=== PATIENT | female | born 1995 | race Caucasian/White ===

== ENCOUNTER 2017-05-15 12:19 | Emergency (ER) | payer OTHER ==
[~2017-05-15] VITALS: Ht 157.5 cm; Wt 66.0 kg
[~2017-05-15 12:19] MED LIST: PREN-385 PO
[2017-05-15 12:24] VITALS: BP 132/81
--- NOTE | 2017-05-15 12:45 | NUR ---
PT REPORTS MID EPIGASTRIC PAIN/CRAMPING SENSATION SINCE LAST NIGHT, WITH CHILLS/FEVERS. ALSO REPORTS DIARRHEA. DENIES DYSURIA, HEMATURIA, OR VAG BLEEDING. ABD SOFT, MILD TENDER WITH PALPATION. =BS [id number]. SKIN W/D/I. RESP EVEN AND UNLABORED. DENIES ANY MED HX OR FAMILY HX, NO DM. WAITING FOR ER MD MUELLER. URINE NEG FOR PREGANCY.
[2017-05-15] MEDS ORDERED: ONDANSETRON 4 MG ODT SL PRN (13:25)
[2017-05-15] MEDS ORDERED: DICYCLOMINE HCL LIQUID 20 MG, ALUMINUM HYD/MAG/SIMETHICONE 30 ML, LIDOCAINE VISCOUS 2% ... PO ONE ×3 (13:25)
[2017-05-15] MEDS ORDERED: FAMOTIDINE 20 MG TAB PO ONE (13:25)
--- NOTE | 2017-05-15 13:29 | NUR ---
pt reports relief after medication, ER updated on pt status. Addendum: 05/15/17 at 1456 by [id number] note at 1410
[2017-05-15 15:01] LABS: BASOPHILS # (AUTO) 0.2 K/uL (0.00-0.22); BASOPHILS % (AUTO) 2.3 % (0.0-2.0); EOSINOPHILS % (AUTO) 0.4 % (0.0-4.0); HEMOGLOBIN 13.3 g/dL (12.0-16.0); LYMPHOCYTES # (AUTO) 1.5 K/uL (2.5-16.5); LYMPHOCYTES % (AUTO) 20.5 % (20.5-51.1); MEAN CORPUSCULAR HEMOGLOBIN 26 pg (27-31); MEAN CORPUSCULAR HGB CONC 33 g/dL (33-37); MEAN CORPUSCULAR VOLUME 78 fL (80-94); MONOCYTES # (AUTO) 0.5 K/uL (0.8-1.0); MONOCYTES % (AUTO) 6.6 % (1.7-9.3); NEUTROPHILS # (AUTO) 5.3 K/uL (1.8-7.7); NEUTROPHILS % (AUTO) 70.2 % (42.2-75.2); PLATELET COUNT (AUTO) 234 K/uL (140-450); RED BLOOD CELL COUNT(AUTO) 5.11 MIL/uL (4.20-5.40); RED CELL DISTRIBUTION WIDTH 15.8 % (11.6-13.7); WHITE BLOOD COUNT (AUTO) 7.5 K/uL (4.8-10.8)
[2017-05-15 15:13] LABS: BILIRUBIN,URINE NEGATIVE (NEGATIVE); BLOOD, URINE 1+ (NEGATIVE); COLOR,URINE YELLOW (YELLOW); LEUKOCYTE ESTERASE ,URINE NEGATIVE (NEGATIVE); NITRITE, URINE NEGATIVE (NEGATIVE); UGLUCOSE NEGATIVE (NEGATIVE)
--- NOTE | 2017-05-15 15:20 | NUR ---
NO ACUTE CHANGES IN CONDITION, DENIES ANY PAIN.
[2017-05-15 15:21] LABS: APPEARANCE,URINE SLIGHTLY HAZY (CLEAR)
[2017-05-15 15:23] LABS: ANION GAP 10.9 (8-16); CARBON DIOXIDE 26.9 mmol/L (21-32); CREATININE 0.7 mg/dL (0.6-1.3); POTASSIUM 3.8 mmol/L (3.5-5.1); TOTAL BILIRUBIN 0.6 mg/dL (0.0-1.0)
[2017-05-15 15:34] LABS: RBC,URINE 3-10 (FEW) /HPF (0-5)
[2017-05-15 15:35] LABS: WBC,URINE 0-5 (RARE) /HPF (0-5)
--- NOTE | 2017-05-15 15:46 | NUR ---
Patient discharged with v/s stable. Written and verbal after care instructions given and explained. Patient alert, oriented and verbalized understanding of instructions. Ambulatory with steady gait. All questions addressed prior to discharge. ID band removed. Patient advised to follow up with PMD. Rx of ZOFRAN AND PEPCID given. Patient educated on indication of medication including possible reaction and side effects. Opportunity to ask questions provided and answered.
[2017-05-15 16:06] VITALS: BP 112/73
== END 2017-05-15 15:46 | disposition home or self-care (01) ==
LOC: MED 12:19
DX: K29.70 Gastritis, unspecified, without bleeding (principal)
CPT/HCPCS: 36415; 80053; 81001; 81025; 83690; 84703; 85025; 99284; S0119

== ENCOUNTER 2019-07-09 04:56 | Emergency (ER) | payer OTHER ==
[~2019-07-09] VITALS: Ht 154.9 cm; Wt 71.2 kg
[2019-07-09 05:00] VITALS: BP 137/78
--- NOTE | 2019-07-09 05:08 | NUR ---
PT AMBULATED TO RESTROOM TO PROVIDE URINE SPECIMEN
--- NOTE | 2019-07-09 05:15 | NUR ---
24 Y/O FEMALE PRESENTS TO ED, C/O ABDOMINAL PAIN 03/16. PT STATES PAIN HAS BEEN INTERMITTENT FOR PAST 3 MONTHS AND WORSENED TODAY. PAIN IS ON LOWER ABDOMEN. BS ACTIVE X4 QUADRANTS. ABDOMEN IS SOFT AND NON TENDER. PT C/O NAUSEA AND VOMITING. STATES VOMITING EVERY DAY. PT DENIES ANY PAIN URINATING. NO SOB/DIFFICULTY BREATHING NOTED. PT VSS. ERMD AWARE. WILL CONTINUE TO MONITOR.
--- NOTE | 2019-07-09 05:27 | NUR ---
BLOOD DRAWN AND URINE SENT TO LAB AT THIS TIME
[2019-07-09 05:41] LABS: BASOPHILS % (AUTO) 0.3 % (0.0-2.0); EOSINOPHILS # (AUTO) 0.1 K/uL (0-0.4); EOSINOPHILS % (AUTO) 1.2 % (0.0-4.0); HEMATOCRIT 42.9 % (36-48); HEMOGLOBIN 13.8 g/dL (12.0-16.0); LYMPHOCYTES # (AUTO) 1.8 K/uL (2.5-16.5); MEAN CORPUSCULAR HEMOGLOBIN 27 pg (27-31); MEAN CORPUSCULAR HGB CONC 32 g/dL (33-37); MEAN CORPUSCULAR VOLUME 85.1 fL (80-94); MONOCYTES # (AUTO) 0.5 K/uL (0.8-1.0); MONOCYTES % (AUTO) 6.1 % (1.7-9.3); NEUTROPHILS # (AUTO) 6.2 K/uL (1.8-7.7); NEUTROPHILS % (AUTO) 71.4 % (42.2-75.2); PLATELET COUNT (AUTO) 268 K/uL (140-450); RED BLOOD CELL COUNT(AUTO) 5.04 MIL/uL (4.20-5.40); RED CELL DISTRIBUTION WIDTH 14.2 % (11.6-13.7); WHITE BLOOD COUNT (AUTO) 8.6 K/uL (4.8-10.8)
[2019-07-09 05:42] LABS: APPEARANCE,URINE SL CLOUDY (CLEAR); BILIRUBIN,URINE NEGATIVE (NEGATIVE); BLOOD, URINE TRACE-I (NEGATIVE); COLOR,URINE YELLOW (YELLOW); LEUKOCYTE ESTERASE ,URINE 2+ (NEGATIVE); NITRITE, URINE NEGATIVE (NEGATIVE); PH,URINE 6.5 (5.0-9.0); UGLUCOSE NEGATIVE (NEGATIVE)
[2019-07-09 06:02] LABS: ANION GAP 14.6 (8-16); CARBON DIOXIDE 23.3 mmol/L (21-32); CREATININE 0.7 mg/dL (0.6-1.3); POTASSIUM 3.9 mmol/L (3.5-5.1)
[2019-07-09] MEDS ORDERED: KETOROLAC 30 MG/ML VIAL IVP ONE (06:05)
[2019-07-09] MEDS ORDERED: ONDANSETRON 4 MG/2 ML VIAL IVP ONE (06:05)
[2019-07-09 06:08] LABS: ALBUMIN 3.8 g/dL (3.4-5.0); TOTAL BILIRUBIN 0.6 mg/dL (0.0-1.0)
[2019-07-09] MEDS ORDERED: CIPROFLOXACIN 250 MG TAB PO ONE (06:15)
[2019-07-09 06:18] LABS: RBC,URINE 0-5 /HPF (0-5)
--- NOTE | 2019-07-09 06:23 | NUR ---
PT TAKEN TO CT
--- NOTE | 2019-07-09 06:40 | NUR ---
PT RETURN FROM CT
[2019-07-09 07:16] VITALS: BP 129/69
--- NOTE | 2019-07-09 07:16 | NUR ---
PT DISCHARGED WITH PAPERWORK. EDUCATED PT REGARDING D/C DIAGNOSIS, INSTRUCTIONS AND MEDICATIONS. PT VERBALIZED UNDERSTANDING OF TEACHING. TOLD PT TO FOLLOW UP WITH PCP AND WHEN TO RETURN TO ED. PT VSS. NO N/V NOTED. ALL QUESTIONS ANSWERED.
== END 2019-07-09 07:16 | disposition home or self-care (01) ==
LOC: MED 04:56
DX: N83.201 Unspecified ovarian cyst, right side (principal); N20.0 Calculus of kidney; N39.0 Urinary tract infection, site not specified; R11.2 Nausea with vomiting, unspecified; Z79.899 Other long term (current) drug therapy
CPT/HCPCS: 36415; 74176; 80053; 81001; 83690; 84703; 85025; 87086; 96374; 96375; 99284; J1885; J2405

== ENCOUNTER 2019-09-21 01:19 | Emergency (ER) | payer OTHER ==
[~2019-09-21] VITALS: Ht 154.9 cm; Wt 73.9 kg
[2019-09-21 01:24] VITALS: BP 136/84
--- NOTE | 2019-09-21 01:28 | NUR ---
PT TAKEN TO BED 5
[2019-09-21] MEDS ORDERED: LORazepam 0.5 MG TAB PO ONE (02:10)
--- NOTE | 2019-09-21 02:10 | NUR ---
24 YEAR OLD FEMALE COMPLAINS OF ANXIETY AND SHAKING SINCE 8PM. PATIENT DENIES ANY OTHER SYMPTOMS AT THIS TIME. PATIENT AOX4, BREATHING EVEN AND UNLABORED, SKIN WARM AND DRY. BED IN LOWEST POSITION, LOCKED, BED RAIL UPX1. PMH - DENIES ALLERGIES - NKA
--- NOTE | 2019-09-21 03:00 | NUR ---
PATIENT ALERT AND AWAKE, BREATHING EVEN AND UNLABORED
[2019-09-21 04:09] VITALS: BP 133/78
--- NOTE | 2019-09-21 04:09 | NUR ---
Patient discharged with v/s stable. Written and verbal after care instructions about anxiety and panic attacks given and explained. Patient alert, oriented and verbalized understanding of instructions. Ambulatory with steady gait. All questions addressed prior to discharge. ID band removed. Patient advised to follow up with PMD. Rx of ativan given. Patient educated on indication of medication including possible reaction and side effects. Opportunity to ask questions provided and answered.
== END 2019-09-21 04:09 | disposition home or self-care (01) ==
LOC: MED 01:19
DX: F41.9 Anxiety disorder, unspecified (principal)
CPT/HCPCS: 93005; 99283

== ENCOUNTER 2021-01-28 19:09 | Emergency (ER) | payer OTHER ==
[~2021-01-28] VITALS: Ht 154.9 cm; Wt 67.1 kg
[2021-01-28 19:17] VITALS: BP 135/74
[2021-01-28] MEDS ORDERED: ACETAMINOPHEN EXTRA STRENGTH 500 MG TAB PO ONE (19:40)
[2021-01-28 20:24] LABS: APPEARANCE,URINE SL CLOUDY (CLEAR); BILIRUBIN,URINE NEGATIVE (NEGATIVE); BLOOD, URINE 3+ (NEGATIVE); COLOR,URINE YELLOW (YELLOW); LEUKOCYTE ESTERASE ,URINE 1+ (NEGATIVE); NITRITE, URINE NEGATIVE (NEGATIVE); PH,URINE 8.5 (5.0-9.0); UGLUCOSE NEGATIVE (NEGATIVE)
[2021-01-28] MEDS ORDERED: CEPH-588 PO (20:43)
[2021-01-28] MEDS ORDERED: AMOXICILLIN 500 MG CAP PO ONE (20:45)
[2021-01-28 20:55] VITALS: BP 135/74
== END 2021-01-28 20:55 | disposition home or self-care (01) ==
LOC: MED 19:09
DX: N39.0 Urinary tract infection, site not specified (principal); Z79.899 Other long term (current) drug therapy
CPT/HCPCS: 81001; 81025; 87086; 99283

== ENCOUNTER 2021-02-14 04:05 | Emergency (ER) | payer OTHER ==
[~2021-02-14] VITALS: Ht 154.9 cm; Wt 70.3 kg
[~2021-02-14 04:05] MED LIST changes: +CEPH-588 PO; -PREN-385 PO
[2021-02-14 04:10] VITALS: BP 114/66
--- NOTE | 2021-02-14 04:10 | NUR ---
to bed ambulatory
--- NOTE | 2021-02-14 04:11 | NUR ---
IN RR GIVING URINE SAMPLE.
--- NOTE | 2021-02-14 04:15 | NUR ---
PT AMBULATED BACK TO BED WITH STEADY GAIT.
--- NOTE | 2021-02-14 04:30 | NUR ---
25 YO F BIB SELF WITH C/C OF VAGINAL BLEEDING X1 WEEK. PT ALSO HAS 9/10 EPIGASTRIC CRAMPING PAIN X2 DAYS. PT WAS SEEN ABOUT 2 WEEKS AGO FOR BLADDER INFECTION. DENIES DISCHARGE, SMELL AND ITCHING. DENIES BURNING DURING URINATION. PT PLACED IN GOWN. BED LOCKED IN LOWEST POSITION, SIDE RAILS X1. LAST MENS: 2 WKS AGO DENIES HX ANS RX NKA
--- NOTE | 2021-02-14 05:38 | NUR ---
blood work collected and given to cristhian from lab.
[2021-02-14 05:44] LABS: BASOPHILS % (AUTO) 0.2 % (0.0-2.0); EOSINOPHILS # (AUTO) 0.1 K/uL (0-0.4); EOSINOPHILS % (AUTO) 0.4 % (0.0-4.0); HEMATOCRIT 40.1 % (36-48); HEMOGLOBIN 12.9 g/dL (12.0-16.0); LYMPHOCYTES # (AUTO) 1.2 K/uL (2.5-16.5); LYMPHOCYTES % (AUTO) 7.1 % (20.5-51.1); MEAN CORPUSCULAR HEMOGLOBIN 26 pg (27-31); MEAN CORPUSCULAR HGB CONC 32 g/dL (33-37); MEAN CORPUSCULAR VOLUME 79.8 fL (80-94); MONOCYTES # (AUTO) 0.7 K/uL (0.8-1.0); MONOCYTES % (AUTO) 4.3 % (1.7-9.3); NEUTROPHILS # (AUTO) 14.7 K/uL (1.8-7.7); PLATELET COUNT (AUTO) 301 K/uL (140-450); RED BLOOD CELL COUNT(AUTO) 5.02 MIL/uL (4.20-5.40); RED CELL DISTRIBUTION WIDTH 15.8 % (11.6-13.7); WHITE BLOOD COUNT (AUTO) 16.7 K/uL (4.8-10.8)
--- NOTE | 2021-02-14 05:44 | NUR ---
pt is sitting up in bed using phone. all needs met at this time. bed locked in lowest position, side rails x2.
[2021-02-14 06:02] LABS: ALBUMIN 3.6 g/dL (3.4-5.0); ANION GAP 14.4 (8-16); CARBON DIOXIDE 23.2 mmol/L (21-32); CREATININE 0.7 mg/dL (0.6-1.3); POTASSIUM 3.6 mmol/L (3.5-5.1); TOTAL BILIRUBIN 0.6 mg/dL (0.0-1.0)
--- NOTE | 2021-02-14 06:18 | NUR ---
Female Dredge Captain accompanied female patient for Pelvic Exam.
--- NOTE | 2021-02-14 06:58 | NUR ---
us at bedside.
[2021-02-14] MEDS ORDERED: metroNIDAZOLE 250 MG TAB PO ONE (07:05)
[2021-02-14] MEDS ORDERED: cefTRIAXone 500 MG in LIDOCAINE MPF 1% 1 ML IM ONE (07:05)
[2021-02-14] MEDS ORDERED: METR500T1 PO (07:07)
[2021-02-14] MEDS ORDERED: DOXY-565 PO (07:07)
--- NOTE | 2021-02-14 07:12 | NUR ---
report given to constantine ewing. transfer of care at this time.
[2021-02-14] MEDS ORDERED: LIDOCAINE MPF 1% 5 ML ONE (07:19)
[2021-02-14] MEDS ORDERED: cefTRIAXone 500 MG VIAL ONE (07:19)
[2021-02-14] MEDS ORDERED: DOXYCYCLINE 100 MG CAP PO SCH ×3 (07:40→09:00)
[2021-02-14] MEDS ORDERED: DOXYCYCLINE 100 MG CAP ONE (07:42)
--- NOTE | 2021-02-14 08:00 | NUR ---
Patient resting with eyes closed, placed on bedside monitor, awaiting results.
--- NOTE | 2021-02-14 09:22 | NUR ---
Per lab new urine sample needed, patient ambulated to restroom to provide urine sample.
--- NOTE | 2021-02-14 09:25 | NUR ---
Henok collected and walked to lab.
--- NOTE | 2021-02-14 09:29 | NUR ---
Patient discharged with v/s stable. Written and verbal after care instructions given about abdominal pain and explained. Patient alert, oriented and verbalized understanding of instructions. Ambulatory with steady gait. All questions addressed prior to discharge. ID band removed. Patient advised to follow up with PMD. Rx of Doxycycline monohydrate and flagyl given. Patient educated on indication of medication including possible reaction and side effects. Opportunity to ask questions provided and answered.
[2021-02-14 09:31] VITALS: BP 125/54
--- NOTE | 2021-02-16 13:03 | NUR ---
LATE ENTRY---Urine culture results received from lab. Lab called with positive Chlamydia results, waiting for lab to send a hard copy.
== END 2021-02-14 09:29 | disposition home or self-care (01) ==
LOC: MED 04:05
DX: N93.9 Abnormal uterine and vaginal bleeding, unspecified (principal); R11.2 Nausea with vomiting, unspecified; R19.7 Diarrhea, unspecified; Z79.899 Other long term (current) drug therapy
CPT/HCPCS: 36415; 76856; 80053; 81002; 81025; 84702; 85025; 86900; 86901; 87210; 87491; 93976; 96372; 99284; J0696; J2001

== ENCOUNTER 2021-05-20 12:17 | Emergency (ER) | payer OTHER ==
[~2021-05-20] VITALS: Ht 154.9 cm; Wt 80.9 kg
[~2021-05-20 12:17] MED LIST changes: +DOXY-565 PO; +METR500T1 PO
[2021-05-20 12:32] VITALS: BP 116/55
--- NOTE | 2021-05-20 12:37 | NUR ---
BRYON. HANDED ON URINE CUP.
--- NOTE | 2021-05-20 12:43 | NUR ---
PT AMB TO BED 1.
--- NOTE | 2021-05-20 12:51 | NUR ---
25 Y/o Female BIB self for 8/10 sharp lower back pain that radiates to abd. Pt states that she is 8 weeks . Denies N/V/D/CP at this time. + BS x all 4 quadrants. abd is soft and nontender. Last BM 05/19, no red or black stool noted. PmHx: Denies Home meds: Denies Allergies: Denies
--- NOTE | 2021-05-20 13:25 | NUR ---
Lab at bedside to draw blood
[2021-05-20 13:26] LABS: APPEARANCE,URINE CLEAR (CLEAR); BILIRUBIN,URINE NEGATIVE (NEGATIVE); BLOOD, URINE TRACE-I (NEGATIVE); COLOR,URINE YELLOW (YELLOW); LEUKOCYTE ESTERASE ,URINE 1+ (NEGATIVE); NITRITE, URINE NEGATIVE (NEGATIVE); PH,URINE 6.5 (5.0-9.0); UGLUCOSE NEGATIVE (NEGATIVE)
[2021-05-20 13:37] LABS: BASOPHILS % (AUTO) 0.4 % (0.0-2.0); EOSINOPHILS # (AUTO) 0.1 K/uL (0-0.4); EOSINOPHILS % (AUTO) 0.7 % (0.0-4.0); HEMOGLOBIN 12.4 g/dL (12.0-16.0); LYMPHOCYTES # (AUTO) 2.1 K/uL (2.5-16.5); LYMPHOCYTES % (AUTO) 19.8 % (20.5-51.1); MEAN CORPUSCULAR HEMOGLOBIN 26 pg (27-31); MEAN CORPUSCULAR HGB CONC 33 g/dL (33-37); MEAN CORPUSCULAR VOLUME 80.1 fL (80-94); MONOCYTES # (AUTO) 0.7 K/uL (0.8-1.0); MONOCYTES % (AUTO) 6.4 % (1.7-9.3); NEUTROPHILS # (AUTO) 7.9 K/uL (1.8-7.7); NEUTROPHILS % (AUTO) 72.7 % (42.2-75.2); PLATELET COUNT (AUTO) 309 K/uL (140-450); RED BLOOD CELL COUNT(AUTO) 4.74 MIL/uL (4.20-5.40); RED CELL DISTRIBUTION WIDTH 14.9 % (11.6-13.7); WHITE BLOOD COUNT (AUTO) 10.8 K/uL (4.8-10.8)
[2021-05-20 13:43] LABS: RBC,URINE 0-5 /HPF (0-5); WBC,URINE 0-5 /HPF (0-5)
[2021-05-20] MEDS ORDERED: CEPH-588 PO (13:50)
[2021-05-20 13:59] LABS: ALBUMIN 3.6 g/dL (3.4-5.0); ANION GAP 13.7 (8-16); CARBON DIOXIDE 24.5 mmol/L (21-32); CREATININE 0.7 mg/dL (0.6-1.3); POTASSIUM 4.2 mmol/L (3.5-5.1); TOTAL BILIRUBIN 0.6 mg/dL (0.0-1.0)
--- NOTE | 2021-05-20 14:09 | NUR ---
SEAN ALSTON AT BEDSIDE
[2021-05-20 15:05] VITALS: BP 120/73
== END 2021-05-20 15:05 | disposition home or self-care (01) ==
LOC: MED 12:17
DX: O26.891 Other specified pregnancy related conditions, first trimester (principal); R10.30 Lower abdominal pain, unspecified; Z3A.01 Less than 8 weeks gestation of pregnancy; Z79.899 Other long term (current) drug therapy
CPT/HCPCS: 36415; 80053; 81001; 81025; 83690; 84702; 85025; 87086; 99284

== ENCOUNTER 2022-04-14 17:05 | Emergency (ER) | payer OTHER ==
[~2022-04-14] VITALS: Ht 154.9 cm; Wt 80.7 kg
[2022-04-14 17:09] VITALS: BP 124/66
[2022-04-14 17:33] VITALS: BP 122/71
[2022-04-14] MEDS ORDERED: IBUPROFEN 600 MG TAB PO ONE (17:45)
[2022-04-14] MEDS ORDERED: IBUPROFEN 600 MG TAB ONE (17:50)
[2022-04-14] MEDS ORDERED: IBUP-1842 PO (18:47)
== END 2022-04-14 18:51 | disposition home or self-care (01) ==
LOC: MED 17:05
DX: M94.0 Chondrocostal junction syndrome [Tietze] (principal); N64.4 Mastodynia; F41.9 Anxiety disorder, unspecified; Z79.899 Other long term (current) drug therapy
CPT/HCPCS: 71101; 93005; 99283

== ENCOUNTER 2022-10-10 14:13 | Emergency (ER) | payer OTHER ==
[~2022-10-10] VITALS: Ht 154.9 cm; Wt 80.3 kg
[~2022-10-10 14:13] MED LIST changes: -DOXY-565 PO; +DOXY-745 PO; +IBUP-1842 PO
[2022-10-10 14:21] VITALS: BP 137/63
--- NOTE | 2022-10-10 15:00 | NUR ---
27 Y/O FEMALE BIB SELF C/O RIGHT SIDED ABD PAIN WITH CRAMPING, DENIES ANY VAGINAL BLEEDING OR DISCHARGE. DENIES ANY TRAUMA/INJURY. LMP: 06/02/22, [id number], 18 WEEKS NKA PMH; ANXIETY
[2022-10-10] MEDS ORDERED: ACETAMINOPHEN 325 MG TAB PO ONE (15:05)
[2022-10-10 15:59] LABS: BASOPHILS % (AUTO) 0.3 % (0.0-2.0); EOSINOPHILS # (AUTO) 0.1 K/uL (0-0.4); EOSINOPHILS % (AUTO) 0.8 % (0.0-4.0); HEMATOCRIT 37.8 % (36-48); HEMOGLOBIN 12.4 g/dL (12.0-16.0); LYMPHOCYTES # (AUTO) 2.2 K/uL (2.5-16.5); LYMPHOCYTES % (AUTO) 20.1 % (20.5-51.1); MEAN CORPUSCULAR HEMOGLOBIN 26 pg (27-31); MEAN CORPUSCULAR HGB CONC 33 g/dL (33-37); MEAN CORPUSCULAR VOLUME 79.5 fL (80-94); MONOCYTES # (AUTO) 0.7 K/uL (0.8-1.0); MONOCYTES % (AUTO) 6.7 % (1.7-9.3); NEUTROPHILS # (AUTO) 7.9 K/uL (1.8-7.7); NEUTROPHILS % (AUTO) 72.1 % (42.2-75.2); PLATELET COUNT (AUTO) 302 K/uL (140-450); RED BLOOD CELL COUNT(AUTO) 4.76 MIL/uL (4.20-5.40); RED CELL DISTRIBUTION WIDTH 15.2 % (11.6-13.7); WHITE BLOOD COUNT (AUTO) 10.9 K/uL (4.8-10.8)
[2022-10-10 16:00] LABS: ANION GAP 12.6 (8-16); CARBON DIOXIDE 24.6 mmol/L (21-32); CREATININE 0.6 mg/dL (0.6-1.3); POTASSIUM 4.2 mmol/L (3.5-5.1); TOTAL BILIRUBIN 0.2 mg/dL (0.0-1.0)
[2022-10-10] MEDS ORDERED: ACETAMINOPHEN 325 MG TAB ONE ×2 (16:57→16:58)
[2022-10-10 17:38] LABS: APPEARANCE,URINE CLEAR (CLEAR); BILIRUBIN,URINE NEGATIVE (NEGATIVE); BLOOD, URINE NEGATIVE (NEGATIVE); COLOR,URINE YELLOW (YELLOW); LEUKOCYTE ESTERASE ,URINE 2+ (NEGATIVE); NITRITE, URINE NEGATIVE (NEGATIVE); UGLUCOSE NEGATIVE (NEGATIVE)
[2022-10-10] MEDS ORDERED: CEPH-588 PO (17:48)
[2022-10-10 17:51] LABS: RBC,URINE 0-5 /HPF (0-5)
== END 2022-10-10 17:52 | disposition home or self-care (01) ==
LOC: MED 14:13
DX: O23.42 Unspecified infection of urinary tract in pregnancy, second trimester (principal); Z3A.18 18 weeks gestation of pregnancy; Z79.2 Long term (current) use of antibiotics; Z79.1 Long term (current) use of non-steroidal anti-inflammatories (NSAID)
CPT/HCPCS: 36415; 76805; 80053; 81001; 81025; 83690; 85025; 87086; 99284; Q0092